=== PATIENT | female | born 1945 | race Caucasian/White ===

== ENCOUNTER 2018-01-15 06:40 | Inpatient (IN) ==
[2018-01-15] MEDS ORDERED: cefOXitin 2,000 MG in Water for inj. (sterile) 20 ML 20 ML IVP ONE (06:53)
[2018-01-15] MEDS: Ringers Solution, Lactated 1,000 ML IVC SCH ×2 (07:06→11:59)
[2018-01-15] MEDS ORDERED: Dexamethasone 4 MG/ML VIAL ONE (07:11)
[2018-01-15] MEDS ORDERED: *HR* Propofol 200 MG/20 ML VIAL IVP ONE (07:11)
[2018-01-15] MEDS ORDERED: *HR* Midazolam HCl 2 MG/2 ML VIAL ONE (07:11)
[2018-01-15] MEDS ORDERED: *HR* Rocuronium Bromide 50 MG/5 ML VIAL ONE (07:11)
[2018-01-15] MEDS ORDERED: Lidocaine -MPF 2% 2 ML VIAL ONE (07:11)
[2018-01-15] MEDS ORDERED: *HR* FentaNYL (PF) 100 MCG/2 ML VIAL ONE ×2 (07:11→10:56)
[2018-01-15] MEDS ORDERED: *HR* Succinylcholine 200 MG/10 ML VIAL IVP ONE (07:11)
[2018-01-15] MEDS ORDERED: Ondansetron 4 MG/2 ML VIAL ONE (07:11)
--- NOTE | 2018-01-15 07:36 | Anesthesia Evaluation PreOp ---
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, IBS, OA) Anesthesia History: No Prior Anesthetic Complications, Past Anesthesia ( thyroidectomy, CTR, colon resection) : No Alcohol Use: none Drug use: none Medications and Allergies Atorvastatin [Lipitor] 20 mg PO HS 04/03/15 [History] Cholecalciferol (Vitamin D3) [Vitamin D3] 2,000 unit PO DAILY 04/03/15 [History] Cyanocobalamin (Vitamin B-12) [Vitamin B12] 1,000 mcg PO DAILY 04/03/15 [History ] Docusate [Colace] 100 mg PO DAILY 04/03/15 [History] Fexofenadine/Pseudoephedrine [Makeda-D 24 Hour Tablet] 180 mg PO HS 04/03/15 [ History] Fluticasone Propionate Nasal [Flonase] 2 spray NS HS PRN 04/03/15 [History] Levothyroxine [Synthroid] 88 mcg PO 0630 04/03/15 [History] Lisinopril/Hydrochlorothiazide [Zestoretic 10-12.5 mg Tablet] 20 each PO DAILY 04/03/15 [History] Metformin [Glucophage] 500 mg PO 1800 04/03/15 [History] Montelukast [Singulair] 10 mg PO HS 04/03/15 [History] Omeprazole [PriLOSEC] 20 mg PO DAILY 04/03/15 [History] Venlafaxine [Effexor] 150 mg PO HS 04/03/15 [History] 3 Allergy/AdvReac Type Severity Reaction Status Date / Time NSAIDS (Non-Steroidal Allergy Nausea Verified 01/06/18 11:57 Anti-Inflamma - Meds/Allergy Pre-op Review Medications Reviewed: Yes Allergies Reviewed: Yes Beta Blockers on Current Med List: No Anesthesia Results - Imaging EKG: report reviewed, image reviewed Anesthesia Exam Vital Signs/O2 Sat/Glucose, Most Recent Temp Pulse Resp BP Pulse Ox 97.9 F 89 18 136/74 98 01/15/18 06:56 01/15/18 06:56 01/15/18 06:56 01/15/18 06:56 01/15/18 06:56 Blood Glucose* 124 Weight: 69 NPO (# of Hours): reater than 8 hours - HEENT Pupil (Motor): Pupils equal Mallampati: II Denture Type: Upper: Complete, Lower: Complete Oral Opening: Greater than 3 - CROP SCOUT LOC: Oriented CROP SCOUT Motor: Normal RUE, Normal LUE, Normal RLE, Normal LLE, Normal Face CROP SCOUT Sensory: Normal: RUE, LUE, RLE, LLE, Face - Cardiac Rhythm: Regular Murmur: None - Pulmonary Breath Sounds: bilateral Clear Anesthesia Assess/Plan ASA Score: 2 Modified [employer] Scale for Level of Consciousness: Cooperative, oriented, and tranquil Anesthetic Plan: General Monitoring Plan: Standard Monitors Recovery Plan: PACU
[2018-01-15] MEDS ORDERED: Famotidine 20 MG/2 ML VIAL IVP ONE (07:38)
[2018-01-15] MEDS ORDERED: Acetaminophen IV 1,000 MG/100 ML INFUS..BTL IVPB ONE (07:38)
--- NOTE | 2018-01-15 07:44 | History & Physical Report ---
Date of Encounter: 01/15/18 Time of Encounter: 07:43 24 Hour HP Update - Instructions Instructions: If the History and Physical is less than 30 days old and was completed prior to A.M. admission and or procedure and has NOT been updated on calendar day of procedure please complete this update prior to performing procedure. - Update Patient reports changes in Medical Condition: No Changes in examination, assessment, or condition: No Changes in Medication: No Preop tests/diagnostics Reviewed: Yes Surgery Remains Indicated: Yes Consent for Planned Operative Procedure(s) Verified: Yes - Pre-Operative Checklist Preoperative Checklist Indicated: Yes Prophylactic Antibiotic Ordered: Yes Home Medications Include Beta Asad: No
[2018-01-15] MEDS ORDERED: *HR* PHENYLEPHRINE 1,000 MCG/10 ML SYRINGE IVP ONE (09:14)
[2018-01-15] MEDS ORDERED: *HR* OxyCODONE Immed Rel 5 MG TABLET PO PRN (10:07)
[2018-01-15] MEDS ORDERED: Ondansetron 4 MG/2 ML VIAL IVP PRN (10:07)
[2018-01-15] MEDS ORDERED: *HR* FentaNYL (PF) 100 MCG/2 ML VIAL IVP PRN (10:07)
[2018-01-15] MEDS ORDERED: OXYCODONE Oral CONC 10 MG/0.5 ML ORAL.SYG SL PRN (14:22)
[2018-01-15] MEDS ORDERED: Naloxone 0.4 MG/ML INJ IVP PRN (14:22)
[2018-01-15] MEDS ORDERED: Fluticasone Propionate Nasal 50 MCG/SPRAY BOTTLE NS PRN (14:42)
[2018-01-15] MEDS: 0.9 % Sodium Chloride 1,000 ML IVC SCH (16:04)
[2018-01-15] MEDS: OXYCODONE Oral CONC 10 MG/0.5 ML ORAL.SYG SL PRN ×2 (16:04→21:21)
[2018-01-15] MEDS: *HR* Heparin 5,000 UNIT/ML VIAL SQ SCH (17:17)
[2018-01-16 01:13] LABS: Basophils % 0.1 %; Hematocrit 32.8 % (35.3-44.9); Hemoglobin 10.8 g/dL (11.5-15.4); Immature Granulocytes % 0.3 % (0-4); Lymphocytes # 0.8 K/mcL (0.6-4.6); Lymphocytes % 8.4 %; Mean Corpuscular HGB Conc 32.9 g/dL (31.6-35.5); Mean Corpuscular Hemoglobin 29.3 pg (28.0-33.3); Mean Corpuscular Volume 89.1 fL (83.0-100.0); Mean Platelet Volume 9.5 fL (9.4-12.4); Monocytes # 0.4 K/mcL (0.0-1.3); Monocytes % 4.4 %; Neutrophils # 8.2 K/mcL (1.6-8.9); Platelet Count 219 K/mcL (140-400); Red Blood Count 3.68 M/mcL (3.82-4.97); Red Cell Distribution Width 13.3 % (11.5-14.5); Segmented Neutrophils % 86.8 %
[2018-01-16 01:27] LABS: BUN/Creatinine Ratio 17 (6-26); Blood Urea Nitrogen 9 mg/dL (8-23); Carbon Dioxide 17 mEq/L (23-29); Chloride 109 mEq/L (98-107); Glucose 121 mg/dL (70-105); Osmolality,Calculated 284 (280-300); Sodium 137 mEq/L (136-145); eGFR For African Americans > 60 (> 60); eGFR For Non-African Americans > 60 (> 60)
[2018-01-16] MEDS: 0.9 % Sodium Chloride 1,000 ML IVC SCH (03:31)
[2018-01-16] MEDS: *HR* Heparin 5,000 UNIT/ML VIAL SQ SCH (05:42)
[2018-01-16] MEDS: OXYCODONE Oral CONC 10 MG/0.5 ML ORAL.SYG SL PRN ×2 (07:37→12:26)
[2018-01-16 11:45] VITALS: BP 150/71
--- NOTE | 2018-01-16 11:48 | General Surgery Progress Note ---
Date of Encounter: 01/16/18 Time of Encounter: 11:46 - Assessment and Plan (1) Diverticulitis Current Visit: Yes Status: Acute POD# 1 s/p robotic sigmoidectomy; pain controlled; having bowel function; tolerating liquids; voiding on her own will reassess patient after lunch with FLD; if tolerating and clinical status remains unchanged, then will plan for discharge at that point; SLIV activity as tolerated Subjective Patient reports: no new complaints, feels better, still having pain, pain is less, tolerating liquids well, no flatus, bowel movement, afebrile Objective Vital Signs - Last 8 Hours Temp Pulse Resp BP Pulse Ox 01/16/18 11:41 97.8 F 77 16 150/71 99 01/16/18 07:29 97.8 F 80 16 148/74 99 01/16/18 05:06 98.0 F 79 15 136/70 99 Intake and Output 01/15/18 01/16/18 01/16/18 23:59 07:59 15:59 Intake Total 650 / 650 1000 / 1000 600 / 600 Output Total 2100 / 2100 1750 / 1750 0 / 0 Balance -1450 / -1450 -750 / -750 600 / 600 Intake: IV Fluids 1000 / 1000 0.9 % Sodium Chloride 1,000 ML 1000 / 1000 @ 85 mls/hr IVC .[id number] [facility] Rx #:[id number] Oral 650 / 650 0 / 0 600 / 600 Output: Urine 2100 / 2100 1750 / 1750 0 / 0 Other: Meal Breakfast Stool Size Small Stool Consistency liquid Stool Characteristics Mucoid Seedy Stool Color Blood Tinged # Voids 4 # Bowel Movements 0 Blood Glucose* 136 104 118 - General physical appearance no distress - Respiratory normal expansion, normal respiratory effort - Cardiovascular Cardiovascular exam: Present: RRR - Abdomen Abdomen: Present: soft, tender (appropriately tender to palpation) - Neurologic CN 2-12 grossly intact - Musculoskeletal normal posture - Psychiatric oriented to time, oriented to person, oriented to place - Labs 01/16/18 00:27 01/16/18 00:27 Diabetes panel 01/16/18 Range/Units 00:27 Sodium 137 (136-145) mEq/L Potassium 4.0 (3.5-5.1) mEq/L Chloride 109 H (98-107) mEq/L Carbon Dioxide 17 L (23-29) mEq/L BUN 9 (8-23) mg/dL Creatinine 0.52 L (0.60-1.20) mg/dL Glucose 121 H (70-105) mg/dL Calcium 9.0 (8.6-10.3) mg/dL Calcium panel 01/16/18 Range/Units 00:27 Calcium 9.0 (8.6-10.3) mg/dL Pituitary panel 01/16/18 Range/Units 00:27 Sodium 137 (136-145) mEq/L Potassium 4.0 (3.5-5.1) mEq/L Chloride 109 H (98-107) mEq/L Carbon Dioxide 17 L (23-29) mEq/L BUN 9 (8-23) mg/dL Creatinine 0.52 L (0.60-1.20) mg/dL Glucose 121 H (70-105) mg/dL Calcium 9.0 (8.6-10.3) mg/dL Adrenal panel 01/16/18 Range/Units 00:27 Sodium 137 (136-145) mEq/L Potassium 4.0 (3.5-5.1) mEq/L Chloride 109 H (98-107) mEq/L Carbon Dioxide 17 L (23-29) mEq/L BUN 9 (8-23) mg/dL Creatinine 0.52 L (0.60-1.20) mg/dL Glucose 121 H (70-105) mg/dL Calcium 9.0 (8.6-10.3) mg/dL - VTE Documentation of Mechanical Device: Intermittent pneumatic compression device Consult Discharge Plan - Plan Referrals: Hayley Hartley CNP [Advanced Practice Nurse] - 02/01/18 2:00 pm
--- NOTE | 2018-01-16 14:15 | Discharge Summary ---
<Umberto Steiner R - Last Filed: 01/16/18 14:13> - NOTES TO OUTPATIENT PROVIDER Notes to Outpatient Provider: s/p robotic sigmoidectomy with Dr. Moeller. Pathology pending Orders not resulted at time of discharge: Pending orders 01/15/18 11:11 Surgical Pathology [PTH] Routine Date of Encounter: 01/16/18 Time of Encounter: 14:17 - Discharge Diagnosis (1) Diverticulitis Priority: Primary Status: Acute (2) S/P partial resection of colon Priority: Secondary Status: Acute General Surgery Exam Initial Vital Signs Temp Pulse Resp BP Pulse Ox 97.9 F 89 18 136/74 98 01/15/18 06:56 01/15/18 06:56 01/15/18 06:56 01/15/18 06:56 01/15/18 06:56 - General physical appearance well developed, well nourished, no distress - Respiratory normal expansion, normal respiratory effort, clear to auscultation - Cardiovascular Cardiovascular exam: Present: RRR, 15, 16 - Abdomen Abdomen general surgery: Present: bowel sounds present, soft, tender (mild, expected). Absent: distended, guarding, rebound, rigid - Incision Incision: Present: clean and dry, intact. Absent: erythema, purulent - Integumentary Integumentary general surgery: Present: warm and dry, no abnormal pigmentation - Neurologic Present: CN 2-12 grossly intact, normal coordination - Psychiatric Psychiatric general surgery: Present: A&Ox3, appropriate, oriented to person, oriented to place, oriented to time, speech is normal, memory intact - Hospital Course Hospital course: Ms. Watkins is a 72 year old female with history of diverticulitis admitted after a Robotic Sigmoidectomy with Dr. Moeller. There were no noted complications during the procedure. Her pain is controlled, having bowel function, tolerating diet, and voiding well. She is ambulating well and feels ready to go home. The patient can be discharged home with follow-up in the clinic in 2 weeks. - Time Spent with Patient Total time spent providing and/or coordinating discharge services: Greater than 30 minutes - Discharge Medications Prescriptions: Ondansetron ODT [Zofran ODT] 4 mg SL Q6HR PRN #15 tab.rapdis PRN Reason: Nausea And Vomiting OxyCODONE/APAP 7.5/325 [Percocet 7.5/325 MG] 1 each PO Q6HR PRN 7 Days #28 tablet PRN Reason: Pain Docusate [Colace] 100 mg PO BID #20 capsule Home Medications: Atorvastatin [Lipitor] 20 mg PO HS 04/03/15 [History] Cholecalciferol (Vitamin D3) [Vitamin D3] 2,000 unit PO DAILY 04/03/15 [History] Cyanocobalamin (Vitamin B-12) [Vitamin B12] 1,000 mcg PO DAILY 04/03/15 [History ] Docusate [Colace] 100 mg PO DAILY 04/03/15 [History] Fexofenadine/Pseudoephedrine [Makeda-D 24 Hour Tablet] 180 mg PO HS 04/03/15 [ History] Fluticasone Propionate Nasal [Flonase] 2 spray NS HS PRN 04/03/15 [History] Levothyroxine [Synthroid] 88 mcg PO 0630 04/03/15 [History] Lisinopril/Hydrochlorothiazide [Zestoretic 10-12.5 mg Tablet] 20 each PO DAILY 04/03/15 [History] Metformin [Glucophage] 500 mg PO 1800 04/03/15 [History] Montelukast [Singulair] 10 mg PO HS 04/03/15 [History] Omeprazole [PriLOSEC] 20 mg PO DAILY 04/03/15 [History] Venlafaxine [Effexor] 150 mg PO HS 04/03/15 [History] Docusate [Colace] 100 mg PO BID #20 capsule 01/16/18 [Rx] Ondansetron ODT [Zofran ODT] 4 mg SL Q6HR PRN #15 tab.rapdis 01/16/18 [Rx] OxyCODONE/APAP 7.5/325 [Percocet 7.5/325 MG] 1 each PO Q6HR PRN 7 Days #28 tablet 01/16/18 [Rx] Allergies/Adverse Reactions: 3 Allergy/AdvReac Type Severity Reaction Status Date / Time NSAIDS (Non-Steroidal Allergy Nausea Verified 01/06/18 11:57 Anti-Inflamma Date of admission: 01/15/18 11:49 Primary care physician: Hayley Melgar MD Discharging clinician: Umberto Steiner Anticipated date of discharge: 01/16/18 Procedures and tests throughout hospitalization: s/p Robotic Sigmoidectomy with Dr. Moeller Labs on day of discharge: Labs from last 24 hours 01/16/18 01/16/18 01/16/18 11:43 07:47 00:27 WBC RBC Hgb Hct MCV MCH MCHC RDW Plt Count MPV Immature Gran % Seg Neutrophils % Lymphocytes % Monocytes % Eosinophils % Basophils % Neutrophils # Lymphocytes # Monocytes # Eosinophils # Basophils # Sodium 137 Potassium 4.0 Chloride 109 H Carbon Dioxide 17 L BUN 9 Creatinine 0.52 L Est GFR ( Amer) > 60 Est GFR (Non-Af Amer) > 60 BUN/Creatinine Ratio 17 Glucose 121 H POC Glucose 118 H 104 H Calculated Osmolality 284 Calcium 9.0 01/16/18 01/15/18 00:27 06:57 WBC 9.5 RBC 3.68 L Hgb 10.8 L Hct 32.8 L MCV 89.1 MCH 29.3 MCHC 32.9 RDW 13.3 Plt Count 219 MPV 9.5 Immature Gran % 0.3 Seg Neutrophils % 86.8 Lymphocytes % 8.4 Monocytes % 4.4 Eosinophils % 0.0 Basophils % 0.1 Neutrophils # 8.2 Lymphocytes # 0.8 Monocytes # 0.4 Eosinophils # 0.0 Basophils # 0.0 Sodium Potassium Chloride Carbon Dioxide BUN Creatinine Est GFR ( Amer) Est GFR (Non-Af Amer) BUN/Creatinine Ratio Glucose POC Glucose 124 H Calculated Osmolality Calcium - Patient Status Disposition: Home, Self-Care Condition: Fair Functional capacity at discharge: independent ambulation Overall status at discharge: patient is progressing back to baseline - Discharge Instructions Instructions: Diverticulitis (DC) Follow Up With: Hayley Hartley [employer] ROLL CALENDER OPERATOR [Advanced Practice Nurse] - 02/01/18 2:00 pm Additional Instructions: General Surgical Discharge Instructions 1. No pushing, pulling, or lifting greater than 15 lbs for 2 weeks. 2. You may shower beginning tomorrow, but no tub baths, soaking, or swimming for 2 weeks. 3. You may resume driving when you are off narcotics and are safe to react in a car. 4. Take ibuprofen every 8 hours for discomfort. If this does not relieve discomfort, you may take the as needed Percocet. Take narcotics as directed. Do not take more narcotics then directed and do not share your narcotics with any other person. Do not drink alcohol while on narcotics. 5. Take stool softeners (Colace) or a water based laxative (Miralax) while taking narcotics. You may hold for loose stools. 6. Report any fevers greater than 100.5F, increase abdominal discomfort, drainage that looks like pus, increased redness or pain at the surgical site, or any vomiting. 7. Report any pain in the calves, shortness of breath, or rapid heartbeat. 8. Follow-up in the office as directed with Hayley Hartley CNP, on 02/01/18 at 2PM. - Diet and Activity Activity: increase activity as tolerated Diet: advance to your usual diet <Ramirez Marks - Last Filed: 01/16/18 17:54> Orders not resulted at time of discharge: Pending orders 01/15/18 11:11 Surgical Pathology [PTH] Routine Date of Encounter: 01/16/18 - Discharge Diagnosis (1) Diverticulitis Status: Acute General Surgery Exam Initial Vital Signs Temp Pulse Resp BP Pulse Ox 97.9 F 89 18 136/74 98 01/15/18 06:56 01/15/18 06:56 01/15/18 06:56 01/15/18 06:56 01/15/18 06:56 - Hospital Course Hospital course: Ms. Watkins is a 72 year old female - Time Spent with Patient Total time spent providing and/or coordinating discharge services: Date of admission: 01/15/18 11:49 Primary care physician: Hayley Melgar MD Labs on day of discharge: Labs from last 24 hours 01/16/18 01/16/18 01/16/18 11:43 07:47 00:27 WBC RBC Hgb Hct MCV MCH MCHC RDW Plt Count MPV Immature Gran % Seg Neutrophils % Lymphocytes % Monocytes % Eosinophils % Basophils % Neutrophils # Lymphocytes # Monocytes # Eosinophils # Basophils # Sodium 137 Potassium 4.0 Chloride 109 H Carbon Dioxide 17 L BUN 9 Creatinine 0.52 L Est GFR ( Amer) > 60 Est GFR (Non-Af Amer) > 60 BUN/Creatinine Ratio 17 Glucose 121 H POC Glucose 118 H 104 H Calculated Osmolality 284 Calcium 9.0 01/16/18 00:27 WBC 9.5 RBC 3.68 L Hgb 10.8 L Hct 32.8 L MCV 89.1 MCH 29.3 MCHC 32.9 RDW 13.3 Plt Count 219 MPV 9.5 Immature Gran % 0.3 Seg Neutrophils % 86.8 Lymphocytes % 8.4 Monocytes % 4.4 Eosinophils % 0.0 Basophils % 0.1 Neutrophils # 8.2 Lymphocytes # 0.8 Monocytes # 0.4 Eosinophils # 0.0 Basophils # 0.0 Sodium Potassium Chloride Carbon Dioxide BUN Creatinine Est GFR ( Amer) Est GFR (Non-Af Amer) BUN/Creatinine Ratio Glucose POC Glucose Calculated Osmolality Calcium - Attending Attestation I have personally seen and examined the patient. I have reviewed pertinent labs , imaging, progress notes, including this one. I agree with the above assessment and plan.
[2018-01-16] MEDS ORDERED: *HR* Metformin 500 MG TABLET PO SCH (18:00)
--- NOTE | 2018-01-20 09:00 | Operative Note ---
Date of procedure: 01/15/18 Pre-op diagnosis: Diverticular disease Post-op diagnosis: same Procedure: After informed consent, patient taken operating room placed supine position. After adequate sedation anesthesia patient was placed in a lithotomy position. After proper timeout a 12 mm cannula site was placed right superior to the umbilicus. Pneumoperitoneum was greater. A 13 mm cannula was placed in right lower quadrant. 5 mm camera was placed in the right upper quadrant. An 8 mm cannula was placed in subxiphoid region followed by another 8 mm in the left lower quadrant. Patient was placed in a headdown position. The robot was docked over the patient's left hip. Small bowel swept out of the pelvis. Rectosigmoid colon was then grasped and retracted cephalad. The peritoneum was then scored level of the sacral promontory. The left ureter was identified and kept on harm's way. The inferior mesenteric artery was then taken with a vessel sealer. The lateral rectosigmoid stalks were taken down the vessel sealer. The dissection was carried out down to approximate 4 cm above the pelvic floor. Rectosigmoid colon was dissected free from the retro-pubic tubercle region. Once it was freed a 29 mm robotic Endo staplers fired across the rectum. Once it was retracted and area was demarcated on the sigmoid colon for transection. Indocyanine green was infused and we had excellent perfusion. The splenic flexure was also taken down and mobilized. This mobilization allowed for less tension on the anastomosis. A counterincision was made in the suprapubic region. Dissection carried down the anterior rectus sheath. The rectus muscles were then divided in the midline with Ashlyn clamp. Once they were split the rectosigmoid colon was delivered. Megan bowel clamps are used to place across the colon proximal and distal and transected. Allis clamps are placed on the bowel and then a pursestring suture device placed on the colon. 3-0 Prolene suture was passed. A pursestring sutures and created and a 29 mm EEA anvil was placed. Suture was tied and secured. Colon was then placed back in the pelvis. The stapler was passed through the anal canal and to the rectal stump and then the spear was placed through the staple line. The anvil was then connected secured and fired. There were 2 excellent donuts. There were several 2-0 silk sutures used to buttress the staple line. A leak test revealed no leak. At that point the procedure was terminated. All incisions are closed with 0 Vicryl suture and 4-0 Vicryl suture. Marcaine was inserted in the Pfannenstiel incision. He tolerated the procedure well. Complications: None Anesthesia: GETA Surgeon: Raghav Moeller Was there an pharmacy affairs assistant present: Yes Paper Wrapping Machine Operator: Sophie Lockett Estimated blood loss (cc): 20 Condition: stable Disposition: floor
--- NOTE | 2018-01-20 09:08 | Operative Note ---
Date of procedure: 01/15/18 Pre-op diagnosis: Diverticular disease Post-op diagnosis: same Procedure: Robotic assisted sigmoid colon resection with takedown of splenic flexure Complications: None Anesthesia: GETA Surgeon: Raghav Moeller Was there an university administrative assistant present: Yes Refrigeration Mechanic: Sophie Lockett Estimated blood loss (cc): 20 Specimen: Sigmoid colon Condition: stable Disposition: floor Procedure in Detail: After informed consent, patient taken operating room placed supine position. After adequate sedation anesthesia patient was placed in a lithotomy position. After proper timeout a 12 mm cannula site was placed right superior to the umbilicus. Pneumoperitoneum was greater. A 13 mm cannula was placed in right lower quadrant. 5 mm camera was placed in the right upper quadrant. An 8 mm cannula was placed in subxiphoid region followed by another 8 mm in the left lower quadrant. Patient was placed in a headdown position. The robot was docked over the patient's left hip. Small bowel swept out of the pelvis. Rectosigmoid colon was then grasped and retracted cephalad. The peritoneum was then scored level of the sacral promontory. The left ureter was identified and kept on harm's way. The inferior mesenteric artery was then taken with a vessel sealer. The lateral rectosigmoid stalks were taken down the vessel sealer. The dissection was carried out down to approximate 4 cm above the pelvic floor. Rectosigmoid colon was dissected free from the retro-pubic tubercle region. Once it was freed a 29 mm robotic Endo staplers fired across the rectum. Once it was retracted and area was demarcated on the sigmoid colon for transection. Indocyanine green was infused and we had excellent perfusion. The splenic flexure was also taken down and mobilized. This mobilization allowed for less tension on the anastomosis. A counterincision was made in the suprapubic region. Dissection carried down the anterior rectus sheath. The rectus muscles were then divided in the midline with Ashlyn clamp. Once they were split the rectosigmoid colon was delivered. Megan bowel clamps are used to place across the colon proximal and distal and transected. Allis clamps are placed on the bowel and then a pursestring suture device placed on the colon. 3-0 Prolene suture was passed. A pursestring sutures and created and a 29 mm EEA anvil was placed. Suture was tied and secured. Colon was then placed back in the pelvis. The stapler was passed through the anal canal and to the rectal stump and then the spear was placed through the staple line. The anvil was then connected secured and fired. There were 2 excellent donuts. There were several 2-0 silk sutures used to buttress the staple line. A leak test revealed no leak. At that point the procedure was terminated. All incisions are closed with 0 Vicryl suture and 4-0 Vicryl suture. Marcaine was inserted in the Pfannenstiel incision. He tolerated the procedure well.
== END 2018-01-16 15:00 | disposition home or self-care (01) | DRG 330 ==
LOC: SAMDAY 06:40 → 3ANU 11:49
PROVIDERS: ADMIT Surgery; ATTEND Surgery